=== PATIENT | male | born 1965 | race Two or more races ===

== ENCOUNTER 2020-08-23 11:33 | Emergency (ER) | payer SELFPAY ==
[~2020-08-23] VITALS: Ht 165.1 cm; Wt 79.4 kg
[2020-08-23] MEDS ORDERED: DOXYCYCLINE MO100 MG ORAL (11:53)
[2020-08-23] MEDS ORDERED: BACTRIM-DS1 EA ORAL (11:53)
--- NOTE | 2020-08-23 11:54 | Emergency Room Report ---
History of Present Illness General Chief Complaint: Wound Recheck/Suture Removal Source: Patient Present Illness HPI 54-year-old [id number] male nondiabetic presents with wound check regarding his 4th right knuckle. Denies fight bite. Patient states that 2 weeks ago he suffered a laceration at work while using metal. His tetanus status was updated. He initially went to [facility] who repaired it with sutures but because of continued use of his right hand, the sutures dehisced. He denies fevers, chills, nausea, vomiting, diarrhea, chest pain, shortness of breath, swelling, numbness, paresthesia He took keflex for a week, which helped but he has since stopped. The patient's symptoms were gradual onset, severity was moderate, duration since 2 weeks. Quality: Aching Past medical history: Denies Past surgical history: Denies Smoking: Denies Alcohol use: Denies Drug use: Denies Review of systems: CONST: No fevers or chills, No night sweats PULMONARY: No productive cough, No shortness of breath CARDIAC: No chest pain, No palpitations GI: No vomiting, No diarrhea , No melena_or_BRBPR : No dysuria, No hematuria, No discharge NEURO: No new_focal_weakness_or_numbness, No confusion, No vision changes 14 point Review of Systems is otherwise negative except per HPI Physical Exam: GENERAL: Awake_alert_ nontoxic, no acute distress Spo2 98% on RA -normal EYES: Extraocular muscles are intact. Conjunctivae clear. Lids without swelling ENT: External nose and ear normal_in_appearance. Oropharynx clear. Head_atraumatic, Moist_oral_mucosa NECK: No JVD. No meningismus. No thyromegaly. Supple. Trachea midline RESP: Normal respiratory effort. Symmetric rise. No stridor. Clear_to_auscultation_No_rales_No_wheezes CARDIAC: Regular rate and regular rhytm. No_significant pedal edema. ABDOMEN: Soft. Nondistended. Nontender_No_rebound_or_guarding. MSK: Normal muscle tone, without rigidity. Extremities without asymmetric deformity or swelling. SKIN: Warm and dry. No visible cyanosis or pallor Right hand: L shaped laceration over 4th MCP. Negative kanavel signs. No fusiform swelling, no exposed tendon, no exposed bone, no cellulitis. There is mild serosanguineous drainage coming from the dehisced wound. There is no palpable crepitus. The right fourth digit is not stuck in flexion. No pain with passive extension. NEUROLOGIC: Alert, oriented x4. Motor_and_sensation_grossly_intact. No truncal ataxia. Gait_normal Psych: Normal mood and affect, normal judgment and insight - COORDINATION OF CARE Case was discussed with: Patient Medical Decision Making/Plan: DDx: laceration vs cellulits vs abscess Patient is afebrile and well-appearing. On examination of his right fourth metacarpal, he is noted to have an old laceration status post repair. The wound has dehisced and there is serosanguineous degranulation tissue. Wound edges are macerated, likely from chronic use with hand. Kanavel signs are negative. Doubt flexor tenosynovitis. Wound was cleaned with chlorhexidine and probed. No purulent drainage or fluctuant abscess. Doubt osteomyelitis. Tdap is already up-to-date. I have instructed patient to avoid using his right hand, especially at work, as this will result in the wound being unable to heal. Therefore, finger splint to the right fourth finger was placed. Recommend wound check in 2 to 3 days with primary care doctor. Recommend referral to hand specialist within 1 week if he has persistent or worsening symptoms despite antibiotics. Will DC with Bactrim and doxycycline Procedure note Right fourth finger immobilizer immobilizer applied to ring finger Splint applied by tech with direct supervision by me. Reassessed following splint application. Neurovascular intact. Compartments remain soft and compressible. Pt tolerated well without complications. Splint care instructions were discussed. Pt to follow up with orthopedics within 1 week to prevent future arthritis and fci disability. Allergies: Coded Allergies: No Known Allergies (Unverified , 08/23/20) COVID-19 Screening Contact w/high risk pt: No Experienced COVID-19 symptoms?: No COVID-19 Testing performed FORESTRY AID: No Nursing Documentation-[facility] Past Medical History: No Stated History Physical Exam Vital Signs Date Time Temp Pulse Resp B/P (MAP) Pulse Ox O2 Delivery O2 Flow Rate FiO2 08/23/20 11:37 98.2 60 18 128/82 (97) 99 Room Air Sp02 EP Interpretation: reviewed, normal Medical Decision Making Diagnostic Impression: Primary Impression: Encounter for wound re-check Additional Impressions: Encounter for dressing change or suture removal Encounter for postoperative wound check Wound dehiscence Finger laceration Last Vital Signs Date Time Temp Pulse Resp B/P (MAP) Pulse Ox O2 Delivery O2 Flow Rate FiO2 08/23/20 11:37 98.2 60 18 128/82 (97) 99 Room Air Disposition: HOME, SELF-CARE Admit Decision Time: 11:52 Condition: Stable Scripts Doxycycline Monohydrate* (DOXYCYCLINE MONOHYDRATE*) 100 Mg Capsule 100 MG ORAL Q12H, #20 CAP 0 Refills Prov: Margret Roe D.O. 08/23/20 Trimethoprim/Sulfamethoxazole (Bactrim Ds Tablet) 1 Each Tablet 1 TAB ORAL TWICE A DAY for 10 Days, #20 TAB Prov: Margret Roe D.O. 08/23/20 Patient Instructions: Delayed Wound Closure, Facial Laceration, [id number], Wound Check, Wound Dehiscence, [id number] Additional Instructions: Instructions for patient/janitor caretaker: Follow up with your physician in 1-2 days. Do not use your right hand for manual labor and keep it in a splint until the wound is fully healed. You may need referral to a hand specialist if your wound continues to dehisce. Follow-up with your doctor sooner if your condition requires a more timely clinical reevaluation. Return to the emergency department immediately if you feel that your condition is worsening or if you have any new or concerning symptoms. Review your discharge instructions and take any prescriptions given as instructed. [facility] PROVIDES FREE OR LOW-COST HEALTH SERVICES TO PEOPLE WHO CAN SHOW PROOF THAT THEY LIVE IN [facility]. TO FIND MORE CLINICS PARTNERED WITH THE [facility] TO PROVIDE SERVICE, PLEASE CALL . Margret Roe D.O. Aug 23, 2020 11:54
--- NOTE | 2020-08-23 11:57 | NUR ---
ED Nurse Note:pt with open area from previous injury and suture repair no bleeding noted. pt with wound care done and registered nurse cardiac telemetry placing steri strips and splint. no active bleeding
[2020-08-23 11:58] VITALS: BP 128/78
[2020-08-23 12:10] VITALS: BP 128/78
--- NOTE | 2020-08-23 12:10 | NUR ---
ED Nurse Note: Pt cleared by health care Provider for discharge. DC instructions/prescription was given and explained to pt and verbalized understanding of teachings. All medical devices such as ID band removed. Pt is AAO x4, ambulatory and left with all personal belongings. pt aware to f/u in 1-2 days and to keep splint in place with bandage in place. aware to start abx
== END 2020-08-23 12:10 | disposition home or self-care (01) ==
LOC: EMR 11:50
DX: T81.30XA Disruption of wound, unspecified, initial encounter (principal); S61.214A Laceration without foreign body of right ring finger without damage to nail, initial encounter; X58.XXXA Exposure to other specified factors, initial encounter; Y92.9 Unspecified place or not applicable
CPT/HCPCS: 99282